=== PATIENT | female | born 2005 | race Caucasian/White ===

== ENCOUNTER 2025-10-10 16:50 | Emergency (ER) | payer BC ==
[~2025-10-10] VITALS: Ht 160 cm; Wt 83.9 kg
[2025-10-10 17:21] VITALS: TEMP 98
[2025-10-10] MEDS ORDERED: ONDANSETRON 4 MG TAB.RAPDIS ONE (17:57)
[2025-10-10] MEDS: ONDANSETRON 4 MG TAB.RAPDIS SL ONE (18:00)
[2025-10-10 18:10] LABS: APPEARANCE,URINE CLEAR (CLEAR); BLOOD, URINE NEGATIVE Ery/uL (NEGATIVE); LEUKOCYTE ESTERASE ,URINE TRACE (NEGATIVE); NITRITE, URINE POSITIVE (NEGATIVE); UGLUCOSE NEGATIVE (NEGATIVE)
[2025-10-10 18:33] LABS: PLATELET COUNT (AUTO) 289 K/uL (150-450); RED BLOOD CELL COUNT(AUTO) 4.41 MIL/uL (4.0-5.2); RED CELL DISTRIBUTION WIDTH 12.3 % (11.5-15.0); WHITE BLOOD COUNT (AUTO) 9.4 K/uL (4.3-11.0)
[2025-10-10 18:38] LABS: ADD URINE CULTURE YES
[2025-10-10 18:58] LABS: ASPARTATE AMINOTRANSFERASE 20.0 U/L (15-37); CALCIUM, SERUM 8.9 mg/dL (8.5-10.1); CREATININE 0.5 mg/dL (0.6-1.3); PREGNANCY TEST SERUM QUAN 0.0 mIU/mL (0-6); SODIUM SERUM 138.0 mmol/L (136-145); TOTAL PROTEIN, SERUM 7.4 g/dL (6.4-8.2); UREA NITROGEN, BLOOD 9.0 mg/dL (7-18)
[2025-10-10] MEDS ORDERED: ONDA4TAB5 PO (19:30)
[2025-10-10] MEDS ORDERED: ACET325C7 PO (19:30)
[2025-10-10] MEDS ORDERED: NITR100C6 PO (19:30)
[2025-10-10 21:07] VITALS: BP 121/67; O2SAT 98
== END 2025-10-10 19:40 | disposition home or self-care (01) ==
LOC: ER 16:54
DX: O23.41 Unspecified infection of urinary tract in pregnancy, first trimester (principal); N39.0 Urinary tract infection, site not specified; R11.2 Nausea with vomiting, unspecified; R10.13 Epigastric pain; R31.9 Hematuria, unspecified; R10.20 Pelvic and perineal pain unspecified side; Z86.19 Personal history of other infectious and parasitic diseases; Z3A.01 Less than 8 weeks gestation of pregnancy
CPT/HCPCS: 99284; 76705; 76805; 85025; 87086; 83690; 81001; 36415; 80053; 86850; 84702; Q0162